=== PATIENT | male | born 1965 | race Native Hawaiian/Other Pacific Islander ===

== ENCOUNTER 2019-02-28 09:01 | Emergency (ER) | payer SELFPAY ==
[~2019-02-28] VITALS: Ht 190.5 cm; Wt 97.7 kg
[~2019-02-28 09:01] MED LIST: LORTAB 5/500 501 TAB; MOTRIN 600600 MG/TAB PO; ZITHROMAX 250M250 MG PO
[2019-02-28 09:05] VITALS: TEMP 96.6
[2019-02-28 09:30] LABS: BASO % 0.4 % (0.0-2.0); EOS # 0.1 (0.0-0.7); EOS % 1.1 % (0-4.0); GRAN # 4.8 (1.4-6.5); GRAN % 55.6 % (42.2-75.2); HEMOGLOBIN 15.4 g/dl (13.5-18.0); LYMPH # 3.1 (1.2-3.4); LYMPH % 35.7 % (20.0-51.0); MEAN CELL VOLUME 88 fl (80.0-100.0); MEAN CORPUSCULAR HEMOGLOBIN 28 pg (27.0-31.0); MEAN CORPUSCULAR HGB CONC 32 g/dl (33.0-37.0); MEAN PLATELET VOLUME 8.9 fl (7.4-10.4); MONO # 0.6 (0.1-0.6); MONO % 6.8 % (1.7-9.3); PLATELET COUNT 254 K/mm3 (130-400); RED BLOOD COUNT 5.43 M/mm3 (4.20-5.60); REDCELL DISTRIBUTION WIDTH-CV 13.8 % (11.5-14.5)
[2019-02-28 09:34] LABS: INR 0.9 (0.8-3.0); PROTHROMBIN TIME 10.4 SECONDS (9.7-12.8)
[2019-02-28 09:35] VITALS: BP 150/56; PULSE 79
[2019-02-28 09:37] LABS: PARTIAL THROMBOPLASTIN TIME 27.8 SECONDS (26.0-37.0)
[2019-02-28 09:41] LABS: ALBUMIN 4.4 gm/dL (3.5-5.0); BILIRUBIN,TOTAL 0.6 mg/dL (0.0-1.0); CALCIUM 9.2 mg/dL (8.4-10.2); CREATININE, serum 1.07 (0.66-1.25); POTASSIUM 4.3 mmol/L (3.4-5.0); TOTAL PROTEIN 7.9 gm/dL (6.4-8.2)
[2019-02-28 09:52] LABS: TROPONIN-I 0.018 ng/mL (0.000-0.035)
== END 2019-02-28 09:50 | disposition short-term general hospital (02) ==
LOC: COL.ER 09:01
PROVIDERS: Emergency Medicine
DX: I21.09 ST elevation (STEMI) myocardial infarction involving other coronary artery of anterior wall (principal)
CPT/HCPCS: J1644; J2405; J3010; J3101; J7030

== ENCOUNTER 2020-12-14 06:16 | Observation (INO) | payer BC ==
[~2020-12-14] VITALS: Ht 190.5 cm; Wt 93.2 kg
[2020-12-14] MEDS ORDERED: ZOCOR 40MG40 MG PO (06:43)
[2020-12-14] MEDS ORDERED: PRINIVIL20 MG PO (06:43)
[2020-12-14] MEDS ORDERED: COREG 25MG25 MG/TAB PO (06:44)
[2020-12-14] MEDS ORDERED: ASPIRIN 32325 MG/TAB PO (06:44)
[2020-12-14] MEDS ORDERED: PLAVIX 75MG TAB75 MG PO (06:45)
[2020-12-14 07:08] LABS: BASO % 0.4 % (0.0-2.0); EOS # 0.1 (0.0-0.7); EOS % 1.6 % (0-4.0); GRAN # 2.9 (1.4-6.5); GRAN % 52.5 % (42.2-75.2); HEMATOCRIT 47.3 % (42.0-52.0); HEMOGLOBIN 15.1 g/dl (13.5-18.0); LYMPH % 36.2 % (20.0-51.0); MEAN CELL VOLUME 92 fl (80.0-100.0); MEAN CORPUSCULAR HEMOGLOBIN 29 pg (27.0-31.0); MEAN CORPUSCULAR HGB CONC 32 g/dl (33.0-37.0); MEAN PLATELET VOLUME 8.9 fl (7.4-10.4); MONO # 0.5 (0.1-0.6); MONO % 9.1 % (1.7-9.3); PLATELET COUNT 252 K/mm3 (130-400); RED BLOOD COUNT 5.14 M/mm3 (4.20-5.60); REDCELL DISTRIBUTION WIDTH-CV 14.5 % (11.5-14.5)
[2020-12-14 07:20] LABS: PROTHROMBIN TIME 11.1 SECONDS (9.7-12.8)
[2020-12-14 07:21] LABS: BILIRUBIN,TOTAL 0.5 mg/dL (0.0-1.0); CALCIUM 8.9 mg/dL (8.4-10.2); CREATININE, serum 0.89 (0.66-1.25); POTASSIUM 4.5 mmol/L (3.4-5.0); TOTAL PROTEIN 7.6 gm/dL (6.4-8.2)
[2020-12-14] MEDS ORDERED: NORCO 325 MG-51 TAB PO (08:07)
[2020-12-14 12:10] VITALS: BP 149/69; PULSE 61; TEMP 98.3
[2020-12-14 15:52] VITALS: BP 135/69; PULSE 66; TEMP 98.7
--- NOTE | 2020-12-14 17:25 | NUR ---
Patient arrived to the floor at approx. 1045. Patien is estella pleasant and was not displaying any s/s of stroke/TIA; No facial droop, dysphagia, slurred speech, weakness, MON. Patient's only complaint was lower back pain which is normal for him as it is chronic.
--- NOTE | 2020-12-14 20:00 | NUR ---
Assessment complete. Patient is alert and oriented with no complaints of pain and no neuro deficits. Hand chemical operations and training are equal and no droop is noted; all limbs have normal strength. HR normal/regular and lungs clear. Pulses strong bilaterally. Comfort measures provided and call light in reach.
[2020-12-14 20:30] VITALS: BP 146/74; PULSE 60; TEMP 98.6
[2020-12-14 22:50] VITALS: BP 152/77; PULSE 61; TEMP 98.1
[2020-12-15 03:07] VITALS: BP 135/83; PULSE 59; TEMP 98.1
--- NOTE | 2020-12-15 06:54 | NUR ---
Bedside shift report complete, report received from SONIA Condon. Pt. alert and able to answer questions. Fresh ice water provided for patient, pt. denies any other needs at this time. Call light and belongings in reach. Safety maintained.
[2020-12-15 07:24] LABS: BASO % 0.6 % (0.0-2.0); EOS # 0.1 (0.0-0.7); EOS % 1.8 % (0-4.0); GRAN # 2.8 (1.4-6.5); GRAN % 55.8 % (42.2-75.2); HEMATOCRIT 47.7 % (42.0-52.0); HEMOGLOBIN 15.2 g/dl (13.5-18.0); LYMPH # 1.7 (1.2-3.4); LYMPH % 33.1 % (20.0-51.0); MEAN CELL VOLUME 92 fl (80.0-100.0); MEAN CORPUSCULAR HEMOGLOBIN 29 pg (27.0-31.0); MEAN CORPUSCULAR HGB CONC 32 g/dl (33.0-37.0); MEAN PLATELET VOLUME 8.9 fl (7.4-10.4); MONO # 0.4 (0.1-0.6); MONO % 8.5 % (1.7-9.3); PLATELET COUNT 235 K/mm3 (130-400); RED BLOOD COUNT 5.19 M/mm3 (4.20-5.60); REDCELL DISTRIBUTION WIDTH-CV 14.4 % (11.5-14.5)
[2020-12-15 07:39] LABS: CALCIUM 8.8 mg/dL (8.4-10.2); CREATININE, serum 0.95 (0.66-1.25); POTASSIUM 4.7 mmol/L (3.4-5.0)
[2020-12-15 07:52] LABS: CHOLESTEROL RISK RATIO 3.6
[2020-12-15 08:09] VITALS: BP 133/76; PULSE 66; TEMP 98.7
[2020-12-15 08:46] VITALS: BP 108/65; PULSE 68; TEMP 98.2
--- NOTE | 2020-12-15 09:55 | NUR ---
SW met with the patient to discuss discharge plan. The patient lives in [place] with her , Mariajose (ph#[phone]). He reports independence with ADLs and does not have any DME. The patient's PCP is Dr. Friend with [facility] and he receives his medications from the PA. The patient does not have a DPOA-HC in EMR, but he states that he does have one completed and that he designated his . He states that the DPOA-HC is at home. The patient plans to return home with his upon discharge. No additional needs at this time. *Discharge plan: home with *
--- NOTE | 2020-12-15 10:14 | NUR ---
Initial visit; Patient thanked Bill Board Poster for looking in on him, offering him encouragement and prayer. Bill Board Poster will follow up.
--- NOTE | 2020-12-15 10:34 | NUR ---
DR. BARNES NOTIFIED ON THE TELEPHONE OF CARDIOLOGY CONSULT IN PLACE FOR THIS PATIENT. SPECIFICATIONS FOR REASON FOR CONSULT IN ORDERS.
[2020-12-15 11:42] VITALS: BP 148/80; PULSE 67; TEMP 98.6
[2020-12-15] MEDS ORDERED: LIPITOR 80MG80 MG PO (14:24)
--- NOTE | 2020-12-15 14:27 | NUR ---
Dyer Assistant in to see patient this afternoon. This RN overheard the physician say plans for discharge, but no new orders at this time. Call light in reach, pt denies needs at this time.
[2020-12-15] MEDS ORDERED: ASPIRIN E.C. 8181 MG PO (14:36)
--- NOTE | 2020-12-15 15:40 | NUR ---
Plans to discharge this patient. Per hospitalist note, Dr. Manuel was not reccommending anticoagulation at this time.
--- NOTE | 2020-12-15 16:58 | NUR ---
Pt. discharged home. All discharge paperwork and instructions provided to the patient. All questions answered. Pt. did not know he was to leave the hospital with hospital staff, this RN went in pt.'s room and he had left on his own. Pt. had a steady gait throughout the day. IV removed, site c/d/i. Pt. agreeable to follow up with cardiology, neurology, and his PCP as well as agreeable to take all medications as prescribed.
== END 2020-12-15 17:00 | disposition home or self-care (01) ==
LOC: COL.ER 06:16 → MEDICAL 07:50
PROVIDERS: Personal Emergency Response Attendant; ADMIT Student in an Organized Health Care Education/Training Program
DX: I63.89 Other cerebral infarction (principal); I25.10 Atherosclerotic heart disease of native coronary artery without angina pectoris; I10 Essential (primary) hypertension; I08.1 Rheumatic disorders of both mitral and tricuspid valves; E78.5 Hyperlipidemia, unspecified; F17.290 Nicotine dependence, other tobacco product, uncomplicated; Z79.82 Long term (current) use of aspirin; Z79.899 Other long term (current) drug therapy; Z95.818 Presence of other cardiac implants and grafts
CPT/HCPCS: G0378; J1650; Q9967

== ENCOUNTER 2021-03-26 15:30 | Inpatient (IN) | payer BC ==
[~2021-03-26] VITALS: Ht 188 cm; Wt 80.9 kg
[2021-03-26] VITALS (90 sets, daily range): BP systolic 152; BP diastolic 86; PULSE 69; TEMP 98; O2SAT 99–100
[~2021-03-26 15:30] MED LIST changes: +ASPIRIN 32325 MG/TAB PO; +ASPIRIN E.C. 8181 MG PO; +COREG 25MG25 MG/TAB PO; +LIPITOR 80MG80 MG PO; +NORCO 325 MG-51 TAB PO; +PLAVIX 75MG TAB75 MG PO; +PRINIVIL20 MG PO; +ZOCOR 40MG40 MG PO
[2021-03-26 16:13] LABS: BASO % 0.3 % (0.0-2.0); EOS # 0.1 K/mm3 (0.0-0.7); GRAN # 3.6 K/mm3 (1.4-6.5); GRAN % 58.5 % (42.2-75.2); HEMATOCRIT 46.5 % (42.0-52.0); HEMOGLOBIN 15.6 g/dl (13.5-18.0); LYMPH % 32.4 % (20.0-51.0); MEAN CELL VOLUME 87 fl (80.0-100.0); MEAN CORPUSCULAR HEMOGLOBIN 29 pg (27.0-31.0); MEAN CORPUSCULAR HGB CONC 34 g/dl (33.0-37.0); MEAN PLATELET VOLUME 8.5 fl (7.4-10.4); MONO # 0.5 K/mm3 (0.1-0.6); MONO % 7.6 % (1.7-9.3); PLATELET COUNT 252 K/mm3 (130-400); RED BLOOD COUNT 5.33 M/mm3 (4.20-5.60); REDCELL DISTRIBUTION WIDTH-CV 13.4 % (11.5-14.5)
[2021-03-26 16:25] LABS: ALBUMIN 4.2 gm/dL (3.5-5.0); BILIRUBIN,TOTAL 0.7 mg/dL (0.2-1.2); C-REACTIVE PROTEIN 0.17 mg/dL (0.00-0.50); CALCIUM 9.5 mg/dL (8.4-10.2); CREATININE, serum 0.97 mg/dL (0.72-1.25); POTASSIUM 3.9 mmol/L (3.5-4.5); TOTAL PROTEIN 7.8 gm/dL (6.2-8.1)
[2021-03-26 16:32] LABS: TROPONIN-I 1.829 ng/mL (0.00-0.033)
[2021-03-26 16:53] LABS: INR 1.1 (0.8-3.0); PROTHROMBIN TIME 11.8 SECONDS (9.7-12.8)
[2021-03-26 16:56] LABS: PARTIAL THROMBOPLASTIN TIME 29.5 SECONDS (26.0-37.0)
--- NOTE | 2021-03-26 21:03 | NUR ---
Arrived to ICU 5. Patient alert and orientated. Denies shortness of breath. Denies pains. Orientated to ICU.
[2021-03-27] VITALS (414 sets, daily range): BP systolic 101–151; BP diastolic 69–94; PULSE 56–80; TEMP 98–98.9; O2SAT 97–100
[2021-03-27 05:04] LABS: BASO % 0.5 % (0.0-2.0); EOS # 0.1 K/mm3 (0.0-0.7); EOS % 1.9 % (0-4.0); GRAN # 2.8 K/mm3 (1.4-6.5); GRAN % 43.7 % (42.2-75.2); HEMATOCRIT 45.3 % (42.0-52.0); HEMOGLOBIN 14.3 g/dl (13.5-18.0); LYMPH # 2.9 K/mm3 (1.2-3.4); LYMPH % 45.8 % (20.0-51.0); MEAN CORPUSCULAR HEMOGLOBIN 29 pg (27.0-31.0); MEAN CORPUSCULAR HGB CONC 32 g/dl (33.0-37.0); MEAN PLATELET VOLUME 9.2 fl (7.4-10.4); MONO # 0.5 K/mm3 (0.1-0.6); MONO % 7.8 % (1.7-9.3); PLATELET COUNT 222 K/mm3 (130-400); RED BLOOD COUNT 4.87 M/mm3 (4.20-5.60); REDCELL DISTRIBUTION WIDTH-CV 13.5 % (11.5-14.5)
[2021-03-27 05:05] LABS: MEAN CELL VOLUME 93 fl (80.0-100.0)
[2021-03-27 05:19] LABS: CHOLESTEROL RISK RATIO 2.8
[2021-03-27 05:28] LABS: TROPONIN-I 1.579 ng/mL (0.00-0.033)
--- NOTE | 2021-03-27 07:00 | NUR ---
RECEIVED REPORT FROM SONIA MCCALL. PT RESTING IN BED WATCHING TV ON RA. CALL LIGHT WITHIN REACH. VSS. SEE GTT FLOWSHEET.
--- NOTE | 2021-03-27 07:20 | NUR ---
Report given to Jennifer SCOTT
--- NOTE | 2021-03-27 16:52 | NUR ---
REPORT CALLED TO SONIA DUGGAN. PT TRANSFERRED VIA WC ON RA. ALL PERSONAL BELONGINGS SENT WITH PT.
--- NOTE | 2021-03-27 20:30 | NUR ---
Initial shift assessment done- denies pain, Up in room, steady on feet, Tele on, NSR, heparin drip at 11.5cc/hr, next hepXA at 2300. HS snack given ,VSS
[2021-03-28 04:06] VITALS: BP 131/77; PULSE 58; TEMP 97.7
--- NOTE | 2021-03-28 05:41 | NUR ---
Quiet night- no chest pain/SOB, Tele on-NSR,, VSS, no requests. heparin drip remains at 11.5cc/hr
[2021-03-28 06:55] LABS: CALCIUM 9.4 mg/dL (8.4-10.2); CREATININE, serum 0.92 mg/dL (0.72-1.25); POTASSIUM 3.9 mmol/L (3.5-4.5)
[2021-03-28 07:00] LABS: HEMATOCRIT 44.8 % (42.0-52.0); MEAN CORPUSCULAR HEMOGLOBIN 30 pg (27.0-31.0); MEAN CORPUSCULAR HGB CONC 34 g/dl (33.0-37.0); MEAN PLATELET VOLUME 9.2 fl (7.4-10.4); PLATELET COUNT 259 K/mm3 (130-400); RED BLOOD COUNT 5.08 M/mm3 (4.20-5.60); REDCELL DISTRIBUTION WIDTH-CV 13.2 % (11.5-14.5)
[2021-03-28 07:09] LABS: MEAN CELL VOLUME 88 fl (80.0-100.0)
[2021-03-28 07:39] VITALS: BP 113/59; PULSE 56; TEMP 97.7
--- NOTE | 2021-03-28 08:40 | NUR ---
Patient sitting up in bed watching tv upon entering the room. Patient does not have any complaints/concerns this morning. Patient is A&Ox4 and remains independent in his room. Heparin drip is still runinning at 11.5mL/hr.
[2021-03-28 11:22] VITALS: BP 105/66; PULSE 62; TEMP 98
--- NOTE | 2021-03-28 13:11 | NUR ---
Victor Hugo met with the pt who stated his preference to return home once medically stable. The pt lives at home with his , Mariajose [phone]. The pt is independent on all ADLS and does not use any DME at this time. Pt does not have DPOA-HC and is not interested in one at this time. The pt PCP is Dr. Friend and ID and gets his medications from ID/[facility]. No other needs stated at this time. Sw to await further recommendations. D/c: home w/
[2021-03-28 16:00] VITALS: BP 108/59; PULSE 62; TEMP 97.9
--- NOTE | 2021-03-28 17:25 | NUR ---
Patient showered independently today. Hep Xa was drawn and came back at 0.50, which required the rate to be decreased 100 units. New rate is 1,050 units/hr. Next Hep Xa is scheduled for 0.
[2021-03-28 20:12] VITALS: BP 124/59; PULSE 64; TEMP 98.1
--- NOTE | 2021-03-28 20:30 | NUR ---
Initial shift assessment done- denies pain/SOB, VSS, Heparin drip continues at 10.5cc/hr, next hepxa at 0130, Tele on. Will have pt be NPO after MN for ? heart cath tomorrow. Requesting his melatonin for sleep tonight
[2021-03-29] VITALS (13 sets, daily range): BP systolic 100–160; BP diastolic 53–90; PULSE 52–69; TEMP 97.6–98.7
--- NOTE | 2021-03-29 06:20 | NUR ---
Quiet night,no requests, no chest pain, heparing drip at 9.5cc/hr- next hepxa at 0800, NPO
[2021-03-29 08:12] LABS: BASO % 0.6 % (0.0-2.0); EOS # 0.1 K/mm3 (0.0-0.7); EOS % 1.7 % (0-4.0); GRAN # 2.4 K/mm3 (1.4-6.5); GRAN % 45.6 % (42.2-75.2); HEMATOCRIT 46.6 % (42.0-52.0); HEMOGLOBIN 15.2 g/dl (13.5-18.0); LYMPH # 2.3 K/mm3 (1.2-3.4); LYMPH % 44.4 % (20.0-51.0); MEAN CELL VOLUME 89 fl (80.0-100.0); MEAN CORPUSCULAR HEMOGLOBIN 29 pg (27.0-31.0); MEAN CORPUSCULAR HGB CONC 33 g/dl (33.0-37.0); MEAN PLATELET VOLUME 8.7 fl (7.4-10.4); MONO # 0.4 K/mm3 (0.1-0.6); MONO % 7.5 % (1.7-9.3); PLATELET COUNT 240 K/mm3 (130-400); RED BLOOD COUNT 5.24 M/mm3 (4.20-5.60); REDCELL DISTRIBUTION WIDTH-CV 13.5 % (11.5-14.5)
[2021-03-29 08:29] LABS: CALCIUM 9.6 mg/dL (8.4-10.2); CREATININE, serum 1.04 mg/dL (0.72-1.25); POTASSIUM 4.5 mmol/L (3.5-4.5)
--- NOTE | 2021-03-29 10:42 | NUR ---
Assessment completed, alert/oriented, vital signs stable, denies any chest pain or discomfort, denies any SOA or resp.difficulty, heart RRR/ SR on tele, lungs CTA/ no resp.difficulty noted, Heparin gtt infusing per protocol/ last hepXa level was WNL no changes to rate made, orders in place for patient to have heart cath today around 1130, he has been NPO and consent is signed, he denies other needs at this time, I am precepting SONIA Gonzalez who is providing all primary nursing care
--- NOTE | 2021-03-29 10:47 | NUR ---
SEE MERGE DOCUMENTATION FOR MEDICATION ADMINISTRATION TIMES AND INTRA/POST PROCEDURE SEDATION ASSESSMENTS.
--- NOTE | 2021-03-29 11:20 | NUR ---
Patient arrived back to room 317 from quality assurance qa lab analyst at this time, he is alert/oriented, vital signs stable, denies pain or discomfort, right femoral access site is soft and non-tender, dressing C/D/I, will continue to monitor
--- NOTE | 2021-03-29 12:05 | NUR ---
Patient continues to do well post heart cath, vital signs stable, right femoral access site dressing is C/D/I, site soft with no signs of bleeding or hematoma, he is sore in right groin and asked for a [place] which I have given, he is getting 500cc of 1/2NS as ordered by cardiology, tolerting PO intake, denies needs, will continue to moonitor
--- NOTE | 2021-03-29 13:46 | NUR ---
patient continues to do well post heart cath, Vital signs stable, pain controlled with [place], dressing C/d/I, no signs of bleeding or hematoma, flat time will be ending at 1500
--- NOTE | 2021-03-29 14:21 | NUR ---
First visit from the mycologist. prayed with patient. No other needs right now.
--- NOTE | 2021-03-29 16:21 | NUR ---
Flat time ended at 1500. patient is up in his room, dressing remains C/D/I, no signs of bleeding or hematoma, discussed [facility] of care with [facility] and we are planning for discahrge home
--- NOTE | 2021-03-29 16:40 | NUR ---
PT DISCHARGING HOME. IV DISCONTINUED. IV CATHETER INTACT. TELE REMOVED. DRESSING TO RIGHT GROIN IS CLEAN, DRY AND INTACT WITH NO SIGNS OF BLEEDING OR HEMATOMA. PT DENIES PAIN, PALPITATIONS, SOB OR DIZZINESS. I WENT OVER DISCHARGE PAPERWORK WITH PT AND ANSWERED ANY QUESTIONS AND CONCERNS HE HAD. PT STATED HE HAS NO OTHER NEEDS AT THIS TIME. PT ESCORTED BY RN VIA WHEELCHAIR TO PT ENTRANCE, WHERE AWAITS TO DRIVE HIM HOME.
== END 2021-03-29 16:50 | disposition home or self-care (01) | DRG 281 ==
LOC: COL.ER 15:30 → ICU 18:23 → MEDICAL 18:23
PROVIDERS: Family Medicine; Internal Medicine; Nurse Practitioner Family; ADMIT Student in an Organized Health Care Education/Training Program
PROC: 4A023N7 Measurement of Cardiac Sampling and Pressure, Left Heart, Percutaneous Approach (ICD-10-PCS; principal; 2021-03-26)
PROC: B2111ZZ Fluoroscopy of Multiple Coronary Arteries using Low Osmolar Contrast (ICD-10-PCS; 2021-03-26)
DX: I21.4 Non-ST elevation (NSTEMI) myocardial infarction (principal); I50.32 Chronic diastolic (congestive) heart failure; E87.2 Acidosis; I25.10 Atherosclerotic heart disease of native coronary artery without angina pectoris; E78.5 Hyperlipidemia, unspecified; I11.0 Hypertensive heart disease with heart failure; G89.29 Other chronic pain; M54.50 Low back pain, unspecified; F17.210 Nicotine dependence, cigarettes, uncomplicated; Z20.822 Contact with and (suspected) exposure to COVID-19; Z95.5 Presence of coronary angioplasty implant and graft; I25.2 Old myocardial infarction; Z86.73 Personal history of transient ischemic attack (TIA), and cerebral infarction without residual deficits; Z79.82 Long term (current) use of aspirin; Z23 Encounter for immunization
CPT/HCPCS: 99223-AI; 99232-AI; 99239; C1760; C1894; J1644; J2250; J3010; J7030; J7120; Q9967

== ENCOUNTER 2022-08-07 09:03 | Emergency (ER) | payer OTHER, BC ==
[~2022-08-07] VITALS: Ht 188 cm; Wt 93.2 kg
[2022-08-07 09:09] VITALS: TEMP 97.7
[2022-08-07] MEDS ORDERED: ILOTYCIN5 MG/GM OP (10:01)
[2022-08-07 10:28] VITALS: BP 165/97; PULSE 69
== END 2022-08-07 10:20 | disposition home or self-care (01) ==
LOC: COL.ER 09:03
DX: H10.89 Other conjunctivitis (principal)

== ENCOUNTER 2023-06-05 09:55 | Emergency (ER) | payer OTHER ==
[~2023-06-05] VITALS: Ht 188 cm; Wt 88.6 kg
[~2023-06-05 09:55] MED LIST changes: +ILOTYCIN5 MG/GM OP; +MEDROL 4MG DOSPA4 MG PO
[2023-06-05 09:57] VITALS: TEMP 97.6
[2023-06-05 10:21] LABS: BASO % 0.3 % (0.0-2.0); EOS % 0.5 % (0.0-4.0); GRAN # 4.7 K/mm3 (1.4-6.5); GRAN % 60.8 % (42.2-75.2); HEMATOCRIT 41.9 % (42.0-52.0); LYMPH # 2.5 K/mm3 (1.2-3.4); LYMPH % 31.7 % (20.0-51.0); MEAN CELL VOLUME 94 fl (80.0-100.0); MEAN CORPUSCULAR HEMOGLOBIN 29 pg (27-31); MEAN CORPUSCULAR HGB CONC 31 g/dl (33.0-37.0); MEAN PLATELET VOLUME 8.8 fl (7.4-10.4); MONO # 0.5 K/mm3 (0.1-0.6); MONO % 6.3 % (1.7-9.3); PLATELET COUNT 302 K/mm3 (130-400); RED BLOOD COUNT 4.46 M/mm3 (4.20-5.60)
[2023-06-05 10:45] LABS: ALANINE AMINOTRANSFERASE 16 U/L (0-55); ALBUMIN 3.6 gm/dL (3.5-5.0); ALKALINE PHOSPHATASE 73 U/L (40-150); ANION GAP 10 mmol/L (7-16); AST,SGOT 22 U/L (5-34); BILIRUBIN,TOTAL 0.6 mg/dL (0.2-1.2); BLOOD UREA NITROGEN 18 mg/dL (8-26); CARBON DIOXIDE 20 mmol/L (22-29); CHLORIDE 107 mmol/L (98-107); CREATININE, serum 1.18 mg/dL (0.72-1.25); GLUCOSE 134 mg/dL (70-99); POTASSIUM 4.8 mmol/L (3.5-4.5); SODIUM 137 mmol/L (136-145); TOTAL PROTEIN 7.3 gm/dL (6.2-8.1)
[2023-06-05 10:51] LABS: TROPONIN-I < 0.010 ng/mL (0.00-0.033)
[2023-06-05 12:06] LABS: COLLECTION METHOD CLEAN CATCH
[2023-06-05 12:20] LABS: PH 5.5 (5.0-8.5); URINE APPEARANCE Clear (CLEAR/HAZY); URINE BLOOD Negative (NEGATIVE); URINE COLOR Yellow (YELLOW); URINE GLUCOSE Negative (NEGATIVE); URINE KETONE TRACE (NEGATIVE); URINE NITRATE Negative (NEGATIVE); URINE PROTEIN(semi-quant) 1+ (NEGATIVE); URINE UROBILINOGEN 0.2 E.U/dL (0.2-1.0); URINE WBC None Seen /hpf (0-2)
[2023-06-05 12:21] LABS: MUCOUS Present (NOT PRESENT); URINE BACTERIA Rare /hpf (NONE SEEN)
[2023-06-05 13:03] VITALS: BP 133/84; PULSE 82
== END 2023-06-05 13:03 | disposition home or self-care (01) ==
LOC: COL.ER 09:55
PROVIDERS: Nurse Practitioner
DX: R42 Dizziness and giddiness (principal); R06.02 Shortness of breath; F17.210 Nicotine dependence, cigarettes, uncomplicated; Z79.82 Long term (current) use of aspirin; Z79.02 Long term (current) use of antithrombotics/antiplatelets